=== PATIENT | female | born 1985 | race Caucasian/White ===

== ENCOUNTER 2017-03-15 12:20 | Emergency (ER) | payer OTHER ==
[~2017-03-15] VITALS: Ht 165.1 cm; Wt 57.0 kg
[2017-03-15 12:27] VITALS: BP 117/77; PULSE 91; RESP 18; TEMP 98.1; O2SAT 100
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
[2017-03-15] MEDS ORDERED: IBUPROFEN 800 MG TAB PO ONE (14:30)
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
[2017-03-15] MEDS ORDERED: METHOCARBAMOL 500 MG TAB PO ONE (15:15)
[2017-03-15] MEDS ORDERED: IBUP1TAB7 PO (15:22)
[2017-03-15] MEDS ORDERED: ROBA500T PO (15:22)
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
== END 2017-03-15 15:50 | disposition home or self-care (01) ==
LOC: NEPD 12:20
DX: M25.551 Pain in right hip (principal); M25.552 Pain in left hip; M25.512 Pain in left shoulder; M79.622 Pain in left upper arm; M54.9 Dorsalgia, unspecified; M54.2 Cervicalgia; V49.9XXA Car occupant (driver) (passenger) injured in unspecified traffic accident, initial encounter
CPT/HCPCS: 70450; 72072; 72100; 72125; 72170; 73030; 73060; 99285